=== PATIENT | female | born 1995 | race Caucasian/White ===

== ENCOUNTER 2016-12-18 17:43 | Emergency (ER) | payer BC ==
--- NOTE | 2016-12-18 18:36 | EDM.PDOC ---
ED HPI GENERAL MEDICAL PROBLEM - General Chief Complaint: ENT Problem Stated Complaint: PT HAS SORE THROAT Time Seen by Provider: 12/18/16 18:20 Source of Information: Reports: Patient History Limitations: Reports: No Limitations - History of Present Illness INITIAL COMMENTS - FREE TEXT/NARRATIVE: HISTORY AND PHYSICAL: History of present illness: [Patient comes to emergency room complaining of tongue and throat discomfort. She was prescribed azithromycin and metronidazole for bacterial vaginosis on December 04. She completed his azithromycin and has been taking metronidazole 3 times a day. She has several days of this medication left. Yesterday she noticed a thickening to her tongue as well as some irritation to the back of her tongue and throat area. No recent sickness fever or chills. Overall she states that she is not feeling well. Denies fever and chills. No earaches runny nose or sore throat. No cough or chest congestion. No shortness of breath or difficulty breathing. No chest pain. No abdominal pain, nausea or vomiting. No vaginal discharge or irritation.] Review of systems: As per history of present illness and below otherwise all systems reviewed and negative. Past medical history: As per history of present illness and as reviewed below otherwise noncontributory. Surgical history: As per history of present illness and as reviewed below otherwise noncontributory. Social history: No reported history of drug or alcohol abuse. Family history: As per history of present illness and as reviewed below otherwise noncontributory. Physical exam: HEENT: Atraumatic, normocephalic. White film present to entire tongue. Papilla to Posterior tongue are enlarged and inflamed. No tonsillar swelling or erythema. Oral mucous membranes moist, throat is otherwise clear. TMs are clear without effusion. Neck is supple, no lymphadenopathy. Lungs: Clear to auscultation, breath sounds equal bilaterally. Heart: S1S2, regular rate and rhythm. Abdomen: Soft, nondistended, nontender. Pelvis: Stable nontender. Genitourinary: Deferred. Rectal: Deferred. Extremities: Atraumatic. Neurovascular unremarkable. Neuro: Awake, alert, oriented. Motor and sensory unremarkable throughout. Exam nonfocal. Impression: [Oral candidiasis] Plan: [Nystatin 100,000 units per mL #200 mL sake 5 mL by mouth, swish and spit 4 times a day 10 days 0 refills. Continue metronidazole for BV. Return to ER as needed as discussed. Patient's agreement with today's discussion.] Definitive disposition and diagnosis as appropriate pending reevaluation and review of above. Throat Pain Score (Numeric/FACES): 4 - Related Data Allergies Allergy/AdvReac Type Severity Reaction Status Date / Time No Known Allergies Allergy Verified 12/18/16 18:03 Home Meds: Home Meds Dextroamphetamine/Amphetamine [Adderall] 12.5 mg PO DAILY 12/18/16 [History] Spironolactone [Aldactone] 25 mg PO 12/18/16 [History] metFORMIN [Glucophage XR] 500 mg PO BIDMEALS 12/18/16 [History] Past Medical History - Past Health History Medical/Surgical History: Denies Medical/Surgical History Social & Family History - Tobacco Use Smoking Status *Q: Current Every Day Smoker Years of Tobacco use: 2 Packs/Tins Daily: 0.5 - Caffeine Use Caffeine Use: Reports: None - Recreational Drug Use Recreational Drug Use: No ED ROS ENT - Review of Systems Review Of Systems: ROS reveals no pertinent complaints other than HPI. ED EXAM, ENT - Physical Exam Exam: See Below Course - Vital Signs Last Recorded V/S: Last Vital Signs Temp 96.4 F 12/18/16 18:04 Pulse 69 12/18/16 18:55 Resp 18 12/18/16 18:55 BP 106/56 L 12/18/16 18:55 Pulse Ox 95 12/18/16 18:55 Departure - Departure Time of Disposition: 18:35 Disposition: Home, Self-Care 01 Condition: Good Clinical Impression: Oral candidiasis - Discharge Information Instructions: Thrush, Adult Referrals: PCP,None [Primary Care Provider] - Forms: ED Department Discharge Additional Instructions: The following information is given to patients seen in the emergency department who are being discharged to home. This information is to outline your options for follow-up care. We provide all patients seen in our emergency department with a follow-up referral. The need for follow-up, as well as the timing and circumstances, are variable depending upon the specifics of your emergency department visit. If you don't have a primary care physician on staff, we will provide you with a referral. We always advise you to contact your personal physician following an emergency department visit to inform them of the circumstance of the visit and for follow-up with them and/or the need for any referrals to a consulting specialist. The emergency department will also refer you to a specialist when appropriate. This referral assures that you have the opportunity for follow-up care with a specialist. All of these measure are taken in an effort to provide you with optimal care, which includes your follow-up. Under all circumstances we always encourage you to contact your private physician who remains a resource for coordinating your care. When calling for follow-up care, please make the office aware that this follow-up is from your recent emergency room visit. If for any reason you are refused follow-up, please contact the [facility] emergency department at and asked to speak to the emergency department charge nurse. [facility] [address] [place] [id number] Follow-up with your primary care provider at the clinic listed above within the next week. Take medications as prescribed. Finish all antibiotics as prescribed. Return to ER as needed as discussed.
[2016-12-18 19:03] VITALS: BP 106/56
== END 2016-12-18 18:55 | disposition home or self-care (01) ==
LOC: MW.ED 17:43
DX: B37.0 Candidal stomatitis (principal); F17.210 Nicotine dependence, cigarettes, uncomplicated; Z79.84 Long term (current) use of oral hypoglycemic drugs
CPT/HCPCS: 99282